=== PATIENT | female | born 1975 | race American Indian/Alaskan Native ===

== ENCOUNTER 2018-03-21 09:24 | Outpatient (CLI) | payer MEDICAID ==
[~2018-03-21 09:24] MED LIST: ADAL40PE SUBCUT; BAC15O TP; BECL8.7A7 INH; CA C1TAB88 PO; CHOL40003 PO; CLOB15CR TP; DOCU-20 PO; FERR324T PO; FURO-150 PO; GABA-532 PO; HYDR-565 PO; LACT1CAP73 PO; LIDO35.4 TP; LINE600T36 PO; LISI10TA4 PO; LORA10TA7 PO; LORA1TAB PO; MULT1TAB74 PO; ONDA8TAB6 PO; OXYC10TA57 PO; PANT-47 PO; [UNRECOGNIZED DRUG - CODE] PO
[2018-03-21] MEDS ORDERED: LIDOcaine 2% 5ml jelly ONE (10:20)
[2018-03-21] MEDS ORDERED: FLUT100D2 INH (11:14)
== END 2018-03-21 12:03 | disposition home or self-care (01) ==
LOC: WOUND CARE 09:24 → EDSTATUS 09:30 → WOUND CARE 12:03
PROVIDERS: ATTEND Surgery
DX: E11.622 Type 2 diabetes mellitus with other skin ulcer (principal); L97.222 Non-pressure chronic ulcer of left calf with fat layer exposed; L97.212 Non-pressure chronic ulcer of right calf with fat layer exposed; L97.821 Non-pressure chronic ulcer of other part of left lower leg limited to breakdown of skin; I12.9 Hypertensive chronic kidney disease with stage 1 through stage 4 chronic kidney disease, or unspecified chronic kidney disease; N18.9 Chronic kidney disease, unspecified; L88 Pyoderma gangrenosum; J44.9 Chronic obstructive pulmonary disease, unspecified; K21.9 Gastro-esophageal reflux disease without esophagitis; E44.1 Mild protein-calorie malnutrition; E66.01 Morbid (severe) obesity due to excess calories; K51.80 Other ulcerative colitis without complications; F32.9 Major depressive disorder, single episode, unspecified; Z68.43 Body mass index [BMI] 50.0-59.9, adult; Z90.79 Acquired absence of other genital organ(s); Z90.89 Acquired absence of other organs
CPT/HCPCS: 36416; 82948; 99215; A6255; A6446